=== PATIENT | male | born 1940 | race Caucasian/White ===

== ENCOUNTER 2018-05-03 13:22 | Inpatient (IN) | payer OTHER ==
[~2018-05-03] VITALS: Ht 180.3 cm; Wt 61.4 kg
[2018-05-03] MEDS ORDERED: SODIUM CHLORIDE 0.9% 1,000 ML IV ONE (14:24)
[2018-05-03] MEDS ORDERED: SODIUM CHLORIDE FLUSH 10ML SYR IVF ONE (14:30)
[2018-05-03] MEDS ORDERED: SODIUM CHLORIDE 0.9% 1,000ML IVBOLUS ONE (14:30)
[2018-05-03 15:55] LABS: BASOPHILS # (AUTO) 0.03 x10^3/uL (0-0.1); BASOPHILS % (AUTO) 0 % (0-1); EOSINOPHILS # (AUTO) 0.02 x10^3/uL (0-0.4); EOSINOPHILS % (AUTO) 0 % (1-7); LYMPHOCYTES # (AUTO) 1.44 x10^3/uL (1-3.4); LYMPHOCYTES % (AUTO) 13 % (22-44); MD NO; MEAN CORPUSCULAR HEMOGLOBIN 33.1 pg (27.5-34.5); MEAN CORPUSCULAR HGB CONC 33.9 g/dL (33.2-36.2); MEAN CORPUSCULAR VOLUME 97.8 fL (81-97); MEAN PLATELET VOLUME 10.7 fL (7.4-10.4); MONOCYTES # (AUTO) 0.84 x10^3/uL (0.2-0.8); MONOCYTES % (AUTO) 8 % (2-9); NEUTROPHILS # (AUTO) 8.74 x10^3/uL (1.8-6.8); NEUTROPHILS % (AUTO) 79 % (42-75); PLATELET COUNT 187 x10^3/uL (130-400); RED BLOOD COUNT 3.53 x10^6/uL (4.38-5.82); RED CELL DISTRIBUTION WIDTH 13.9 % (9.4-14.8)
[2018-05-03 16:02] LABS: ALANINE AMINOTRANSFERASE 64 U/L (12-78); ALBUMIN 2.7 g/dL (3.4-5.0); ANION GAP 9 mmol/L (5-15); CALCIUM 8.5 mg/dL (8.5-10.1); CHLORIDE 112 mmol/L (98-107); INTERNATIONAL NORMALIZED RATIO 1.14 (0.93-1.1)
[2018-05-03 16:05] LABS: ALKALINE PHOSPHATASE 50 U/L (45-117); BILIRUBIN,TOTAL 0.6 mg/dL (0.2-1.0); CREATININE 1.12 mg/dL (0.7-1.3); TOTAL PROTEIN 6.6 g/dL (6.4-8.2)
[2018-05-03] MEDS ORDERED: DICL75TA2 PO (16:20)
[2018-05-03] MEDS ORDERED: CYCL5TAB PO (16:20)
[2018-05-03] MEDS ORDERED: MIRT7.5T8 PO (16:39)
[2018-05-03] MEDS ORDERED: OMEP40CA6 PO (16:39)
[2018-05-03] MEDS ORDERED: POTA20TA14 PO (16:39)
[2018-05-03] MEDS ORDERED: MAGN420T PO (16:39)
[2018-05-03] MEDS ORDERED: METO25TA35 PO (16:39)
[2018-05-03] MEDS ORDERED: GABA300C10 PO (16:39)
[2018-05-03] MEDS ORDERED: SODIUM CHLORIDE FLUSH 10ML SYR IVF PRN (17:00)
[2018-05-03] MEDS ORDERED: ONDANSETRON 2MG/ML, 2ML IVPush PRN (17:30)
[2018-05-03 18:13] LABS: FREE T4 (FREE THYROXINE) 0.98 ng/dL (0.76-1.46); THYROID STIMULATING HORMONE 1.82 mIU/L (0.358-3.740)
[2018-05-03] MEDS ORDERED: HALOPERIDOL 5 MG/ML ONE (18:21)
[2018-05-03] MEDS ORDERED: HALOPERIDOL 5 MG/ML IM ONE (18:30)
[2018-05-03 18:48] LABS: MICROSCOPIC AUTO
[2018-05-03 18:50] VITALS: BP 152/91
[2018-05-03 19:09] LABS: CULTURE INDICATED? YES
[2018-05-03] MEDS: D5%-0.45% NACL 1,000 ML IV SCH (19:28)
[2018-05-03] MEDS ORDERED: CEFTRIAXONE PMX 1GM/50ML 50 ML IV SCH (20:00)
[2018-05-03] MEDS: HEPARIN 5,000 UNITS/ML, 1ML SQ SCH (20:36)
[2018-05-04 01:40] VITALS: BP 131/73
[2018-05-04] MEDS: HEPARIN 5,000 UNITS/ML, 1ML SQ SCH ×4 (03:50→20:01)
[2018-05-04 04:49] LABS: BASOPHILS # (AUTO) 0.02 x10^3/uL (0-0.1); BASOPHILS % (AUTO) 0 % (0-1); EOSINOPHILS # (AUTO) 0.09 x10^3/uL (0-0.4); EOSINOPHILS % (AUTO) 1 % (1-7); LYMPHOCYTES # (AUTO) 1.49 x10^3/uL (1-3.4); LYMPHOCYTES % (AUTO) 19 % (22-44); MD NO; MEAN CORPUSCULAR HGB CONC 34.2 g/dL (33.2-36.2); MEAN CORPUSCULAR VOLUME 99.3 fL (81-97); MEAN PLATELET VOLUME 10.4 fL (7.4-10.4); MONOCYTES # (AUTO) 0.61 x10^3/uL (0.2-0.8); MONOCYTES % (AUTO) 8 % (2-9); NEUTROPHILS # (AUTO) 5.68 x10^3/uL (1.8-6.8); NEUTROPHILS % (AUTO) 72 % (42-75); PLATELET COUNT 167 x10^3/uL (130-400); RED BLOOD COUNT 3.44 x10^6/uL (4.38-5.82)
[2018-05-04 05:03] LABS: CHLORIDE 111 mmol/L (98-107)
[2018-05-04 05:13] LABS: ALANINE AMINOTRANSFERASE 65 U/L (12-78); ALBUMIN 2.7 g/dL (3.4-5.0); ALKALINE PHOSPHATASE 45 U/L (45-117); ANION GAP 5 mmol/L (5-15); BILIRUBIN,TOTAL 0.6 mg/dL (0.2-1.0); CALCIUM 8.7 mg/dL (8.5-10.1); CREATININE 0.94 mg/dL (0.7-1.3); TOTAL PROTEIN 6.4 g/dL (6.4-8.2)
[2018-05-04] MEDS: MORPHINE SULFATE 4 MG/ML, 1ML IVPush PRN ×3 (06:01→21:32)
[2018-05-04] MEDS: D5%-0.45% NACL 1,000 ML IV SCH ×2 (06:02→16:51)
[2018-05-04] MEDS ORDERED: CEFTRIAXONE PMX 1GM/50ML 50 ML IV SCH (07:00)
[2018-05-04 09:00] VITALS: BP 152/81
[2018-05-04 13:45] VITALS: BP 128/64
[2018-05-04] MEDS: HALOPERIDOL 5 MG/ML IM PRN ×2 (19:01→23:12)
[2018-05-04 19:14] VITALS: BP 145/76
[2018-05-05 00:40] VITALS: BP 124/80
[2018-05-05] MEDS: MORPHINE SULFATE 4 MG/ML, 1ML IVPush PRN (00:42)
[2018-05-05] MEDS ORDERED: ZIPRASIDONE 20 MG INJ IM ONE (02:30)
[2018-05-05] MEDS: D5%-0.45% NACL 1,000 ML IV SCH ×2 (02:54→11:32)
[2018-05-05 04:28] LABS: BASOPHILS # (AUTO) 0.03 x10^3/uL (0-0.1); BASOPHILS % (AUTO) 0 % (0-1); EOSINOPHILS # (AUTO) 0.03 x10^3/uL (0-0.4); EOSINOPHILS % (AUTO) 0 % (1-7); LYMPHOCYTES # (AUTO) 1.18 x10^3/uL (1-3.4); LYMPHOCYTES % (AUTO) 13 % (22-44); MD NO; MEAN CORPUSCULAR HEMOGLOBIN 33.5 pg (27.5-34.5); MEAN CORPUSCULAR HGB CONC 34.1 g/dL (33.2-36.2); MEAN CORPUSCULAR VOLUME 98.2 fL (81-97); MEAN PLATELET VOLUME 10.1 fL (7.4-10.4); MONOCYTES # (AUTO) 0.61 x10^3/uL (0.2-0.8); MONOCYTES % (AUTO) 7 % (2-9); NEUTROPHILS # (AUTO) 6.99 x10^3/uL (1.8-6.8); NEUTROPHILS % (AUTO) 79 % (42-75); PLATELET COUNT 161 x10^3/uL (130-400); RED BLOOD COUNT 3.35 x10^6/uL (4.38-5.82); RED CELL DISTRIBUTION WIDTH 13.3 % (9.4-14.8)
[2018-05-05] MEDS: HEPARIN 5,000 UNITS/ML, 1ML SQ SCH (04:41)
[2018-05-05 04:42] LABS: ANION GAP 8 mmol/L (5-15); CALCIUM 8.4 mg/dL (8.5-10.1); CHLORIDE 106 mmol/L (98-107)
[2018-05-05 04:43] LABS: CREATININE 0.76 mg/dL (0.7-1.3)
[2018-05-05 07:50] VITALS: BP 114/80
[2018-05-05] MEDS ORDERED: CEFD300C37 PO (11:20)
== END 2018-05-05 12:30 | disposition home health service (06) | DRG 690 ==
LOC: ED 17:20 → EDIP 17:21 → ED 17:27 → ICU 18:39 → DCLOUNGE 05-05 12:17
PROVIDERS: ADMIT Family Medicine; ATTEND Family Medicine
DX: N39.0 Urinary tract infection, site not specified (principal); F02.81 Dementia in other diseases classified elsewhere, unspecified severity, with behavioral disturbance; E87.0 Hyperosmolality and hypernatremia; Z68.1 Body mass index [BMI] 19.9 or less, adult; G93.49 Other encephalopathy; E44.0 Moderate protein-calorie malnutrition; B96.20 Unspecified Escherichia coli [E. coli] as the cause of diseases classified elsewhere; G30.9 Alzheimer's disease, unspecified; K21.9 Gastro-esophageal reflux disease without esophagitis; Z66 Do not resuscitate; R62.7 Adult failure to thrive; I10 Essential (primary) hypertension; G89.29 Other chronic pain; E86.0 Dehydration; Z90.49 Acquired absence of other specified parts of digestive tract; Z79.899 Other long term (current) drug therapy
CPT/HCPCS: 36415; 74022; 80048; 80053; 81001; 82140; 83605; 83690; 83735; 84100; 84439; 84443; 85025; 85610; 85730; 87040; 87077; 87086; 87186; 93005; 96360; 96372; 99285; G0378; J0696; J1644; J3486; J1630; J7030